=== PATIENT | female | born 1980 | race Caucasian/White ===

== ENCOUNTER 2020-06-20 22:11 | Inpatient (IN) ==
[2020-06-20] MEDS ORDERED: KETOROLAC TROMETHAMINE 15 MG/ML VIAL IV STA (22:22)
[2020-06-20] MEDS ORDERED: cefTRIAXone SODIUM 2,000 MG/70 ML BAG IV STA (22:23)
[2020-06-20] MEDS ORDERED: HYDROmorphone INJ 1 MG/ML SYRINGE IV STA (22:23)
[2020-06-20] MEDS ORDERED: ONDANSETRON INJ 2 MG/ML 2 ML VIAL IV STA (22:30)
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
[2020-06-20 22:51] LABS: Basophils # (auto) 0.03 K/uL (0-0.2); Basophils % (auto) 0.3 %; Eosinophils # (auto) 0.11 K/uL (0-0.5); Hematocrit (blood only) 46.3 % (37-47); Hemoglobin 15.7 g/dL (12.0-16.0); Immature Granulocytes # (auto) 0.01 K/uL (0.00-0.02); Immature Granulocytes % (auto) 0.1 %; Lymphocytes # (auto) 2.78 K/uL (1.2-3.4); Lymphocytes % (auto) 25.4 %; Mean Corpuscular Hemoglobin 29.6 pg (25-34); Mean Corpuscular Hgb Conc 33.9 g/dL (32-36); Mean Corpuscular Volume 87.4 fL (80-100); Mean Platelet Volume 10.1 fL (7.4-10.4); Monocytes # (auto) 0.66 K/uL (0.11-0.59); Neutrophils # (auto) 7.37 K/uL (1.4-6.5); Neutrophils % (auto) 67.2 %; Platelet Count 268 K/uL (130-400); RDW Coefficient of Variation 12.2 % (11.5-14.5); RDW Standard Deviation 38.6 fL (36.4-46.3); White Blood Count 10.96 K/uL (4.8-10.8)
[2020-06-20 22:55] LABS: Appearance Urine Cloudy (Clear); Bacteria Urine Automated Negative (Negative); Bilirubin Urine Negative (Negative); Blood Urine Trace (Negative); Color Urine Yellow; Epithelial Cell Urine Auto >30 /lpf (0-5); Glucose Urine UA Negative (Negative); Ketones Urine Negative (Negative); Leukocyte Esterase Urine 3+ (Negative); Nitrite Urine Negative (Negative); Protein Urine Negative (Negative); Specific Gravity Urine 1.013 (1.000-1.030); Urobilinogen Urine Negative (Negative); WBC Urine Automated >30 /hpf (0-5)
[2020-06-20 23:09] LABS: Albumin Level 3.4 gm/dl (3.4-5.0); BUN Creatinine Ratio 15.2 (10-20); Calcium 9.3 mg/dl (8.5-10.1); Creatinine Clr Calc Pharmacy 114.5 ml/min; Est GFR (Non-African American) 75.9; Potassium 3.9 mmol/L (3.5-5.1)
[2020-06-20 23:12] LABS: Albumin Globulin Ratio 0.9 (0.9-2); Bilirubin,Total 0.3 mg/dl (0.2-1); Globulin 3.9 gm/dl (2.5-4.0); Total Protein 7.3 gm/dl (6.4-8.2)
[2020-06-20] MEDS ORDERED: ACETAMINOPHEN 1,000 MG/100 ML VIAL IV STA (23:17)
[2020-06-21] MEDS ORDERED: ONDANSETRON INJ 2 MG/ML 2 ML VIAL IV PRN ×2 (01:36→13:31)
[2020-06-21] MEDS ORDERED: POLYETHYLENE (MIRALAX) 17 GM PACK PO PRN (01:36)
[2020-06-21] MEDS: SODIUM CHLORIDE 0.9% 1000ML 1,000 ML IV SCH ×3 (02:01→20:54)
--- NOTE | 2020-06-21 02:02 | History and Physical Report ---
DATE OF ADMISSION: 06/21/2020 CHIEF COMPLAINT: Renal colic. HISTORY OF PRESENT ILLNESS: This is a 39-year-old female with past medical history significant for bronchospasm exercise-induced; history of epilepsy, currently not on any medications, who presents with a right renal colic. The patient was in the ER yesterday morning with right renal colic and found to have 4 mm right UPJ stone and UTI. The patient was discharged on cefdinir and oxycodone. The patient's pain was not getting better, it got severe, right flank pain associated with some nausea. Denies any fevers, chills. No burning micturition, no hematuria. She has irritable bowel syndrome. She is chronically constipated. Denies any chest pain or shortness of breath. No cough, no headache, no blurred vision, no earache, no runny nose, no sore throat. Otherwise, she is doing okay. Currently seems somewhat in pain but hemodynamically stable. ALLERGIES: BEE VENOM, LATEX, SHELLFISH. PAST MEDICAL HISTORY: As mentioned above. PAST SURGICAL HISTORY: , tympanostomy with tubes, repair of a bladder defect, total hysterectomy. MEDICATIONS: Currently on Aleve as directed, Zofran 4 mg p.o. q. 6 hours p.r.n., oxycodone 5 mg p.o. q. 4 hours p.r.n., cefdinir 300 mg p.o. b.i.d. FAMILY HISTORY: Significant for father has hypertension. SOCIAL HISTORY: , smokes half pack a day for 20 years. No alcohol use, no drug use. REVIEW OF SYSTEMS: As per HPI. Rest of the review of systems negative. PHYSICAL EXAMINATION: GENERAL: The patient is obese, not in acute distress. VITAL SIGNS: Temperature 37, pulse when she came in was in 130s, respiratory rate currently in 20s, blood pressure 128/66, oxygen 95% on room air. HEENT: Pupils equal, round, and reactive to light. Oral mucosa moist. NECK: No neck masses seen, supple. CARDIOVASCULAR: S1, S2 heard. Regular rate and rhythm. No murmur, no gallop. RESPIRATORY SYSTEM: Normal AP diameter. No accessory muscle use. No wheezing, no crackles. ABDOMEN: Soft, bowel sounds present. Mild right flank tenderness and mild right CVA tenderness. No guarding, no rigidity, no distention. CENTRAL NERVOUS SYSTEM: Cranial nerves II-XII grossly intact. Nonfocal. EXTREMITIES: No edema, no erythema. LABORATORY DATA: WBC 10.9, hemoglobin 15.7, hematocrit 46.3, platelets 268. Sodium 143, potassium 3.9, chloride 108, bicarbonate 26, BUN 14, creatinine 0.9, serum glucose 128, calcium 9.3, total bilirubin 0.3, AST 11, ALT 24, alkaline phosphatase 114, lipase 273. Urinalysis, positive for leukocyte esterase. EKG: Normal sinus rhythm at a rate of 72, no significant change was found. IMAGING STUDIES: Done yesterday on the CAT scan showing 4 mm obstructing stone within the right ureteropelvic junction resulting in moderate right hydronephrosis. No change in 3.4 x 2 cm soft tissue abnormality in the gastrohepatic ligament. This could represent an enlarging lymph node or exophytic lesion such as GI stromal tumor. Nonemergent GI consultation recommended for further evaluation. ASSESSMENT AND PLAN: This is a 39-year-old female who presents with right renal colic. 1. Right renal colic and also urinary tract infection. A 4 mm right ureteropelvic junction stone with moderate hydronephrosis. No history of kidney stones in the past. We will keep her n.p.o., IV fluids, IV Dilaudid p.r.n., IV antiemetics, Flomax, and consult urology in the a.m. for further recommendation. 2. 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 This was there in 2018 too. The patient does not seem to be followed. We will consult GI while she is in the hospital. 3. Deep venous thrombosis prophylaxis, sequential compression devices. DISPOSITION: Monitor in the medical floor. Expect to discharge home and follow with family doctor. Level 1 full code. MTDD
[2020-06-21] MEDS: HYDROmorphone INJ 0.5 MG/0.5 ML SYR IV PRN ×6 (02:04→23:34)
[2020-06-21 07:09] LABS: Basophils # (auto) 0.01 K/uL (0-0.2); Basophils % (auto) 0.1 %; Eosinophils # (auto) 0.11 K/uL (0-0.5); Eosinophils % (auto) 1.2 %; Hematocrit (blood only) 41.9 % (37-47); Hemoglobin 14.2 g/dL (12.0-16.0); Immature Granulocytes # (auto) 0.01 K/uL (0.00-0.02); Immature Granulocytes % (auto) 0.1 %; Lymphocytes # (auto) 3.04 K/uL (1.2-3.4); Mean Corpuscular Hemoglobin 29.8 pg (25-34); Mean Corpuscular Hgb Conc 33.9 g/dL (32-36); Mean Corpuscular Volume 87.8 fL (80-100); Monocytes # (auto) 0.72 K/uL (0.11-0.59); Monocytes % (auto) 7.8 %; Neutrophils # (auto) 5.33 K/uL (1.4-6.5); Neutrophils % (auto) 57.8 %; Platelet Count 226 K/uL (130-400); RDW Coefficient of Variation 12.1 % (11.5-14.5); RDW Standard Deviation 38.8 fL (36.4-46.3); Red Blood Count 4.77 M/uL (4.2-5.4); White Blood Count 9.22 K/uL (4.8-10.8)
[2020-06-21 07:38] LABS: BUN Creatinine Ratio 20.2 (10-20); Calcium 9.1 mg/dl (8.5-10.1); Creatinine Clr Calc Pharmacy 134.2 ml/min; Est GFR (African American) 106.9; Est GFR (Non-African American) 92.2; Potassium 3.8 mmol/L (3.5-5.1)
[2020-06-21] MEDS: TAMSULOSIN HCL 0.4 MG CAP PO SCH (10:01)
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
--- NOTE | 2020-06-21 10:46 | Electrocardiogram Report ---
Test Reason : Blood Pressure : / mmHG Vent. Rate : 072 BPM Atrial Rate : 072 BPM P-R Int : 138 ms QRS Dur : 096 ms QT Int : 382 ms P-R-T Axes : 027 032 037 degrees QTc Int : 418 ms Normal sinus rhythm When compared with ECG of 09-JUL-2018 11:47, No significant change was found Confirmed by Guilherme Panchal ([id number]) on 06/21/2020 10:46:10 AM Referred By: REFERRED SELF Confirmed By:Charlie Panchal
--- NOTE | 2020-06-21 11:58 | Hospitalist Progress Note ---
Date of Service June 21, 2020 Assessment & Plan (1) Right kidney stone: Right renal colic CT A/P show 4mm right ureteropelvic jxn stone with moderate hydronephrosis Urology consult noted Planned for cystoscopy and possible stenting Continue to strain urine. Continue pain management Continue IVF UA showed +leuk est, WBC >30. Possible UTI. UCx from 06/19/20 showed 3 types of org, probably skin marlo Continue iv ceftriaxone for now and follow urine culture on admission Gastric mass noted on CT A/P - 3.4x2cm soft tissue abnormality at gastrohepatic ligament, no change. GI can follow up outpatient Admission and Anticipated Discharge Date Admission Date: June 21, 2020 Subjective Patient seen and examined Still reports intermittent right flank pain Denied any fevers, chills, nausea, vomiting Denied any diarrhea Denied any chest pain, SOB, HUERTA Physical Exam Constitutional: + well hydrated and + obese; no acute distress Eyes: PERRL, conjunctivae normal, anicteric sclerae ENMT: external ear and nose normal, oropharynx normal Respiratory: normal respiratory effort, lungs clear to auscultation Cardiovascular: RRR, no murmur, no edema Gastrointestinal (Abdomen): normal bowel sounds, soft, nontender, no hepatosplenomegaly Musculoskeletal: no cyanosis or clubbing, extremities motor strength 5/5 Neurologic: PERRL, EOMI, accommodation nl, no face palsy, no dysarthria Psychiatric: A+Ox3, euthymic affect Genitourinary: + CVA tenderness (Right) Results & Data Results & Data ([facility]) Vital Signs (Past 12 Hours) Vital Signs Temp Pulse Resp BP Pulse Ox 06/21/20 06:56 36.7 C 60 20 118/78 95 06/21/20 01:37 36.5 C 75 18 157/82 H 97 06/21/20 01:07 88 14 110/64 95 Laboratory Results Laboratory Results - last 24 hr 06/20/20 06/20/20 06/20/20 22:41 22:41 22:41 WBC 10.96 H RBC 5.30 Hgb 15.7 Hct 46.3 MCV 87.4 MCH 29.6 MCHC 33.9 RDW Std Deviation 38.6 RDW Coeff of Raul 12.2 Plt Count 268 MPV 10.1 Immature Gran % (Auto) 0.1 Neut % (Auto) 67.2 Lymph % (Auto) 25.4 [place] % (Auto) 6.0 Eos % (Auto) 1.0 Baso % (Auto) 0.3 Neut # (Auto) 7.37 H Lymph # (Auto) 2.78 [place] # (Auto) 0.66 H Eos # (Auto) 0.11 Baso # (Auto) 0.03 Immature Gran # (Auto) 0.01 Sodium 143 Potassium 3.9 Chloride 108 H Carbon Dioxide 26 Anion Gap 9.0 BUN 14 Creatinine 0.94 Est Cr Clr Drug Dosing 114.5 Est GFR ( Amer) 88.0 Est GFR (Non-Af Amer) 75.9 BUN/Creatinine Ratio 15.2 Glucose 129 H Calcium 9.3 Magnesium Total Bilirubin 0.3 AST 11 L ALT 24 Alkaline Phosphatase 114 Total Protein 7.3 Albumin 3.4 Globulin 3.9 Albumin/Globulin Ratio 0.9 Lipase 273 Urine Color Yellow Urine Appearance Cloudy A Urine pH 7.0 Ur Specific [place] 1.013 Urine Protein Negative Urine Glucose (UA) Negative Urine Ketones Negative Urine Blood Trace H Urine Nitrite Negative Urine Bilirubin Negative Urine Urobilinogen Negative Ur Leukocyte Esterase 3+ H Urine WBC (Auto) >30 H Urine RBC (Auto) 5-10 H U Hyaline Cast (Auto) 1-5 U Epithel Cells (Auto) >30 H Urine Bacteria (Auto) Negative POC Ur Test COVID-19 Eval Order SARS-CoV-2, RNA, NAAT 06/20/20 06/21/20 06/21/20 22:41 06:58 06:58 WBC 9.22 RBC 4.77 Hgb 14.2 Hct 41.9 MCV 87.8 MCH 29.8 MCHC 33.9 RDW Std Deviation 38.8 RDW Coeff of Raul 12.1 Plt Count 226 MPV 10.0 Immature Gran % (Auto) 0.1 Neut % (Auto) 57.8 Lymph % (Auto) 33.0 [place] % (Auto) 7.8 Eos % (Auto) 1.2 Baso % (Auto) 0.1 Neut # (Auto) 5.33 Lymph # (Auto) 3.04 [place] # (Auto) 0.72 H Eos # (Auto) 0.11 Baso # (Auto) 0.01 Immature Gran # (Auto) 0.01 Sodium 141 Potassium 3.8 Chloride 111 H Carbon Dioxide 23 Anion Gap 7.0 BUN 16 Creatinine 0.80 Est Cr Clr Drug Dosing 134.2 Est GFR ( Amer) 106.9 Est GFR (Non-Af Amer) 92.2 BUN/Creatinine Ratio 20.2 H Glucose 101 H Calcium 9.1 Magnesium 2.0 Total Bilirubin AST ALT Alkaline Phosphatase Total Protein Albumin Globulin Albumin/Globulin Ratio Lipase Urine Color Urine Appearance Urine pH Ur Specific [place] Urine Protein Urine Glucose (UA) Urine Ketones Urine Blood Urine Nitrite Urine Bilirubin Urine Urobilinogen Ur Leukocyte Esterase Urine WBC (Auto) Urine RBC (Auto) U Hyaline Cast (Auto) U Epithel Cells (Auto) Urine Bacteria (Auto) POC Ur Test NEG COVID-19 Eval Order SARS-CoV-2, RNA, NAAT 06/21/20 06/21/20 Unknown Unknown WBC RBC Hgb Hct MCV MCH MCHC RDW Std Deviation RDW Coeff of Raul Plt Count MPV Immature Gran % (Auto) Neut % (Auto) Lymph % (Auto) [place] % (Auto) Eos % (Auto) Baso % (Auto) Neut # (Auto) Lymph # (Auto) [place] # (Auto) Eos # (Auto) Baso # (Auto) Immature Gran # (Auto) Sodium Potassium Chloride Carbon Dioxide Anion Gap BUN Creatinine Est Cr Clr Drug Dosing Est GFR ( Amer) Est GFR (Non-Af Amer) BUN/Creatinine Ratio Glucose Calcium Magnesium Total Bilirubin AST ALT Alkaline Phosphatase Total Protein Albumin Globulin Albumin/Globulin Ratio Lipase Urine Color Urine Appearance Urine pH Ur Specific [place] Urine Protein Urine Glucose (UA) Urine Ketones Urine Blood Urine Nitrite Urine Bilirubin Urine Urobilinogen Ur Leukocyte Esterase Urine WBC (Auto) Urine RBC (Auto) U Hyaline Cast (Auto) U Epithel Cells (Auto) Urine Bacteria (Auto) POC Ur Test COVID-19 Eval [facility] SARS-CoV-2, RNA, NAAT NEGATIVE
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
[2020-06-21] MEDS ORDERED: fentaNYL citrate 100 MCG/2 ML VIAL IV PRN (13:31)
[2020-06-21] MEDS ORDERED: ATROPINE SULFATE 0.1 MG/ML 10ML SYR IV PRN (13:31)
[2020-06-21] MEDS ORDERED: MIDAZOLAM HCL 1 MG/ML 2ML VIAL ONE ×2 (13:52→14:08)
[2020-06-21] MEDS ORDERED: ONDANSETRON INJ 2 MG/ML 2 ML VIAL ONE (13:52)
[2020-06-21] MEDS ORDERED: LIDOCAINE HCL 2% 2 ML VIAL/AMP(20MG/ML) INFIL ONE (13:52)
[2020-06-21] MEDS ORDERED: PROPOFOL IV EMULSION 10 MG/ML 20 ML VIAL IV ONE (13:52)
[2020-06-21] MEDS ORDERED: fentaNYL citrate 100 MCG/2 ML VIAL ONE (13:52)
--- NOTE | 2020-06-21 14:25 | Operative Report ---
PG Post Operative Report Pre & Post Diagnosis Operation Date: 06/21/20 13:30 Pre-Op Diagnosis: Renal Colic Post-Op Diagnosis: Renal Colic I identified the patient and participated in the time-out.: Yes Procedure Operation Date: 06/21/20 13:30 Actual Procedures p Right Ureteral Stent Insertion(Right) - Pierre Esteves MD Surgeon Guilherme Esteves MD [place] none Estimated Blood Loss 0 Findings Consistent with Post-Op Diagnosis Specimens none Description of Procedure The patient was identified in the preoperative holding area, appropriate informed consents were reviewed and completed and the patient was transferred to the operative suite. Upon arrival, appropriate antibiotics and anesthesia were administered and the patient was placed in dorsal lithotomy position and prepped and draped in sterile fashion. To begin the case to pass a 22 Jama[place] cystoscope with 30 degree lens. Inspection revealed a healthy-appearing bladder and ureteral orifices in orthotopic position. Return my attention of the right ureteral orifice and cannulated with a sensor wire and a 5 Jamaican open-ended catheter. The wire advanced to the kidney without difficulty. I then placed a 6 Jamaican by 26 cm double-J ureteral stent seeing a good curl in the kidney as well as the bladder. The case was subsequently concluded and the bladder decompressed. She was returned to the PACU in stable condition and there were no complications. I attest to the content of the Intraoperative Record and any orders documented therein. Any exceptions are noted below.
--- NOTE | 2020-06-21 14:31 | Fluoroscopy Report ---
FL KUB CLINICAL HISTORY: RT STENT PLACEMENT COMPARISON STUDY: None. FLUOROSCOPY TIME: 4 seconds. FINDINGS: Single fluoroscopic spot image of the right abdomen demonstrates a right ureteral stent. On ly proximal portion of the stent is identified and appears in good position. IMPRESSION: Fluoroscopy provided for right ureteral stent placement. ACT 112: Negative or not required by law. Electronically signed by: Jak Reeves M.D. 06/21/2020 2:29 PM
--- NOTE | 2020-06-21 15:07 | Anesthesiology Progress Note ---
Date of Service June 21, 2020 Anesthesia Post Procedure Vital Signs Vital Signs: Temp Pulse Pulse Pulse Resp BP BP 06/21/20 15:00 63 17 104/72 06/21/20 14:50 67 14 104/72 06/21/20 14:40 36.5 C 76 12 115/72 06/21/20 14:30 63 17 124/67 06/21/20 14:23 36.5 C 68 16 114/57 L 06/21/20 06:56 36.7 C 60 20 118/78 06/21/20 01:37 36.5 C 75 18 157/82 H 06/21/20 01:07 88 14 110/64 06/20/20 23:09 06/20/20 22:14 37.0 C 133 H 35 H 128/66 Pulse Ox 06/21/20 15:00 94 06/21/20 14:50 96 06/21/20 14:40 93 06/21/20 14:30 94 06/21/20 14:23 100 06/21/20 06:56 95 06/21/20 01:37 97 06/21/20 01:07 95 06/20/20 23:09 95 06/20/20 22:14 98 Pain Intensity Right Flank: Pain Intensity: 3 Transfer of Care Handoff Completed per policy Notes Mental Status: alert / awake / arousable Patient Amnestic to Procedure: Yes Nausea / Vomiting: adequately controlled Pain: adequately controlled Airway Patency, RR, SpO2: stable & adequate BP & HR: stable & adequate Hydration State: stable & adequate Anesthetic Complications: no major complications apparent
[2020-06-21] MEDS ORDERED: NAPROXEN 250 MG TAB PO PRN (15:21)
[2020-06-21] MEDS ORDERED: ONDANSETRON 4 MG OD TAB PO PRN (15:22)
[2020-06-21] MEDS: ACETAMINOPHEN 325 MG TAB PO PRN ×2 (16:37→21:00)
[2020-06-21] MEDS: OXYCODONE HCL IR 5 MG TAB (IMMEDIATE RELEASE) PO PRN (16:37)
--- NOTE | 2020-06-21 20:24 | Consultation Report ---
DATE OF CONSULTATION: 06/21/2020 GASTROENTEROLOGY CONSULT NOTE I was asked by Dr. Simmons to consult on this woman for evaluation of abnormal imaging. The patient is a 39-year-old who was admitted because of renal colic and is being managed for a kidney stone. However, imaging of her abdomen revealed an incidental 3 x 2 cm soft tissue abnormality at the gastrohepatic ligament previously seen several years ago. She has not had a workup of this. We discussed this briefly and I recommended an outpatient upper endoscopy with endoscopic ultrasound. This can be done electively as an outpatient. This lesion seems stable in size since previous imaging. The patient is agreeable with outpatient workup.
[2020-06-21] MEDS: cefTRIAXone SODIUM 2,000 MG in DEXTROSE 5% 50 ML IV SCH (21:02)
[2020-06-22] MEDS: PHENAZOPYRIDINE HCL 100 MG TAB PO PRN ×2 (02:20→20:37)
[2020-06-22] MEDS: HYDROmorphone INJ 0.5 MG/0.5 ML SYR IV PRN ×3 (05:00→20:29)
[2020-06-22] MEDS: SODIUM CHLORIDE 0.9% 1000ML 1,000 ML IV SCH ×4 (05:04→21:34)
[2020-06-22 06:26] LABS: Hematocrit (blood only) 39.3 % (37-47); Hemoglobin 13.4 g/dL (12.0-16.0); Mean Corpuscular Hemoglobin 30.1 pg (25-34); Mean Corpuscular Hgb Conc 34.1 g/dL (32-36); Mean Corpuscular Volume 88.3 fL (80-100); Mean Platelet Volume 10.5 fL (7.4-10.4); Platelet Count 207 K/uL (130-400); RDW Coefficient of Variation 12.1 % (11.5-14.5); RDW Standard Deviation 38.8 fL (36.4-46.3); Red Blood Count 4.45 M/uL (4.2-5.4); White Blood Count 8.98 K/uL (4.8-10.8)
[2020-06-22 07:18] LABS: BUN Creatinine Ratio 10.7 (10-20); Calcium 8.4 mg/dl (8.5-10.1); Creatinine Clr Calc Pharmacy 147.1 ml/min; Est GFR (African American) 119.4; Potassium 3.4 mmol/L (3.5-5.1)
[2020-06-22] MEDS: TAMSULOSIN HCL 0.4 MG CAP PO SCH (09:40)
[2020-06-22] MEDS: OXYCODONE HCL IR 5 MG TAB (IMMEDIATE RELEASE) PO PRN ×3 (09:41→22:23)
--- NOTE | 2020-06-22 10:05 | Urology Progress Note ---
Date of Service June 22, 2020 Assessment & Plan (1) Right kidney stone: s/p right ureteral stent yesterday stone pain improved, but stent discomfort is significant and she is not handling this well toradol now if pain can be reasonably controlled, dc home for outpt treatment if pain cannot be controlled, we will have to figure out if we can find a time to treat her stone this week Admission and Anticipated Discharge Date Admission Date: June 21, 2020 Subjective urgent stent placement yesterday somewhat improved today stent related discomfort has been relatively significant - voiding very frequently vitals stable Physical Exam Constitutional: well developed and well nourished Respiratory: no respiratory distress Cardiovascular: Extremities: no pedal edema Gastrointestinal (Abdomen): Inspection/Auscultation: abdomen normal to inspection Results & Data ([facility]) Vital Signs (Past 12 Hours) Vital Signs Temp Pulse Resp BP BP Pulse Ox 06/22/20 06:57 36.6 C 61 18 117/70 95 06/22/20 04:14 36.9 C 68 20 120/74 99 06/21/20 23:57 36.7 C 67 20 137/90 99 PG Care Time/CCT Total # of Minutes Spent Total Time Spent with Patient: Total time spent is greater than 50% in coordination of care (as documented) at patient's floor/unit and/or counseling patient: Coding Level of Care Code 11363 Subseq Hosp Care Lvl 3 Diagnoses Right kidney stone N20.0
--- NOTE | 2020-06-22 10:19 | Hospitalist Progress Note ---
Date of Service June 22, 2020 Assessment & Plan (1) Right kidney stone: Right renal colic CT A/P show 4mm right ureteropelvic jxn stone with moderate hydronephrosis S/P Right ureteral stent placement yesterday Continue to strain urine. Continue pain management Continue IVF UA showed +leuk est, WBC >30. Possible UTI. UCx from 06/19/20 showed 3 types of org, probably skin marlo Urine culture from admission still pending Continue iv ceftriaxone for now and follow urine culture on admission Gastric mass noted on CT A/P - 3.4x2cm soft tissue abnormality at gastrohepatic ligament, no change. Will follow up with GI outpatient for evaluation with endoscopy Admission and Anticipated Discharge Date Admission Date: June 21, 2020 Subjective Patient seen and examined Still reports significant right flank pain. Denied any fevers, chills, nausea Denied any diarrhea Physical Exam Constitutional: + well hydrated and + obese; no acute distress Eyes: PERRL, conjunctivae normal, anicteric sclerae ENMT: external ear and nose normal, oropharynx normal Respiratory: normal respiratory effort, lungs clear to auscultation Cardiovascular: RRR, no murmur, no edema Gastrointestinal (Abdomen): normal bowel sounds, soft, nontender, no hepatosplenomegaly Musculoskeletal: no cyanosis or clubbing, extremities motor strength 5/5 Neurologic: PERRL, EOMI, accommodation nl, no face palsy, no dysarthria Psychiatric: A+Ox3, euthymic affect Genitourinary: + CVA tenderness (Right) Results & Data Results & Data ([facility]) Vital Signs (Past 12 Hours) Vital Signs Temp Pulse Resp BP BP Pulse Ox 06/22/20 06:57 36.6 C 61 18 117/70 95 06/22/20 04:14 36.9 C 68 20 120/74 99 06/21/20 23:57 36.7 C 67 20 137/90 99 Laboratory Results Laboratory Results - last 24 hr 06/22/20 06/22/20 05:31 05:31 WBC 8.98 RBC 4.45 Hgb 13.4 Hct 39.3 MCV 88.3 MCH 30.1 MCHC 34.1 RDW Std Deviation 38.8 RDW Coeff of Raul 12.1 Plt Count 207 MPV 10.5 H Sodium 140 Potassium 3.4 L Chloride 111 H Carbon Dioxide 23 Anion Gap 6.0 BUN 8 D Creatinine 0.73 Est Cr Clr Drug Dosing 147.1 Est GFR ( Amer) 119.4 Est GFR (Non-Af Amer) 103.0 BUN/Creatinine Ratio 10.7 Glucose 110 H Calcium 8.4 L
[2020-06-22] MEDS ORDERED: KETOROLAC 30 MG/ML VIAL IV ONE (10:50)
[2020-06-22] MEDS ORDERED: POTASSIUM CHLORIDE PWD 20 MEQ PACK PO ONE (12:57)
[2020-06-22] MEDS: cefTRIAXone SODIUM 2,000 MG in DEXTROSE 5% 50 ML IV SCH (21:33)
[2020-06-22] MEDS: ACETAMINOPHEN 325 MG TAB PO PRN (22:22)
[2020-06-23] MEDS: HYDROmorphone INJ 0.5 MG/0.5 ML SYR IV PRN ×3 (02:32→10:50)
[2020-06-23 06:04] LABS: Hemoglobin 13.4 g/dL (12.0-16.0); Mean Corpuscular Hemoglobin 29.2 pg (25-34); Mean Corpuscular Hgb Conc 32.7 g/dL (32-36); Mean Corpuscular Volume 89.3 fL (80-100); Mean Platelet Volume 10.2 fL (7.4-10.4); Platelet Count 214 K/uL (130-400); RDW Coefficient of Variation 12.1 % (11.5-14.5); RDW Standard Deviation 39.4 fL (36.4-46.3); Red Blood Count 4.59 M/uL (4.2-5.4); White Blood Count 6.81 K/uL (4.8-10.8)
[2020-06-23 06:32] LABS: BUN Creatinine Ratio 16.4 (10-20); Calcium 9.1 mg/dl (8.5-10.1); Creatinine Clr Calc Pharmacy 130.9 ml/min; Est GFR (African American) 103.7; Est GFR (Non-African American) 89.5
[2020-06-23] MEDS: SODIUM CHLORIDE 0.9% 1000ML 1,000 ML IV SCH ×3 (06:37→14:33)
[2020-06-23] MEDS: TAMSULOSIN HCL 0.4 MG CAP PO SCH (09:38)
[2020-06-23] MEDS: OXYCODONE HCL IR 5 MG TAB (IMMEDIATE RELEASE) PO PRN ×3 (09:41→21:40)
--- NOTE | 2020-06-23 12:52 | Hospitalist Progress Note ---
Date of Service June 23, 2020 Assessment & Plan (1) Right kidney stone: Right renal colic CT A/P show 4mm right ureteropelvic jxn stone with moderate hydronephrosis S/P Right ureteral stent placement yesterday Continue to strain urine. Discontinue dilaudid. Give ketorolac. continue oxycodone prn for severe pain Continue IVF at 100cc/h Advised patient to ambulate Discussed with Dr Kraft (urologist). Patient will follow up with them outpatient for continued management UTI UA showed +leuk est, WBC >30. UCx from 06/19/20 showed 3 types of org, probably skin marlo Urine culture from admission - negative. Patient had been on antibiotics from ER visit prior Continue iv ceftriaxone for now and plan to change to po to complete 7-10 day therapy Gastric mass noted on CT A/P - 3.4x2cm soft tissue abnormality at gastrohepatic ligament, no change. Will follow up with GI outpatient for evaluation with endoscopy Dispo- possible discharge within 24-48h Admission and Anticipated Discharge Date Admission Date: June 22, 2020 Subjective Patient seen and examined Still reports severe right sided abd pain with intermittent relief with dilaudid and oxycodone Denied any dysuria, freq, urgency, hematuria at this time Denied abd pain, nausea, vomiting, diarrhea Denied any cough, chest pain, SOB, HUERTA Physical Exam Constitutional: + well hydrated and + obese; no acute distress Eyes: PERRL, conjunctivae normal, anicteric sclerae ENMT: external ear and nose normal, oropharynx normal Respiratory: normal respiratory effort, lungs clear to auscultation Cardiovascular: RRR, no murmur, no edema Gastrointestinal (Abdomen): normal bowel sounds, soft, nontender, no hepatosplenomegaly Musculoskeletal: no cyanosis or clubbing, extremities motor strength 5/5 Neurologic: PERRL, EOMI, accommodation nl, no face palsy, no dysarthria Psychiatric: A+Ox3, euthymic affect Genitourinary: + CVA tenderness (Right) Results & Data Results & Data ([facility]) Vital Signs (Past 12 Hours) Vital Signs Temp Pulse Resp BP Pulse Ox 06/23/20 07:16 36.8 C 75 18 112/72 94 Laboratory Results Laboratory Results - last 24 hr 06/23/20 06/23/20 05:28 05:28 WBC 6.81 RBC 4.59 Hgb 13.4 Hct 41.0 MCV 89.3 MCH 29.2 MCHC 32.7 RDW Std Deviation 39.4 RDW Coeff of Raul 12.1 Plt Count 214 MPV 10.2 Sodium 140 Potassium 4.0 D Chloride 112 H Carbon Dioxide 25 Anion Gap 3.0 BUN 13 D Creatinine 0.82 Est Cr Clr Drug Dosing 130.9 Est GFR ( Amer) 103.7 Est GFR (Non-Af Amer) 89.5 BUN/Creatinine Ratio 16.4 Glucose 100 H Calcium 9.1
--- NOTE | 2020-06-23 12:59 | Urology Progress Note ---
Date of Service June 23, 2020 Assessment & Plan (1) Right kidney stone: POD2 s/p right ureteral stent Patient continues to have discomfort. Discussed options to consider all concerns and other issues. Continues to have urgency and urgency. Mild nausea. Has been slowly improving. Patient is trying to keep up with hydration. Plans to follow. Will likely need 1 to 2 weeks of treatments. We will plan to follow-up in between now and then to set up for procedure. Otherwise continue with symptom control. Home likely today or the next day. Admission and Anticipated Discharge Date Admission Date: June 22, 2020 Subjective Postop from stent placement for obstruction issues. Patient has been tolerating well. Has noticed some frequency and urgency. Has not had severe pain in the back and flank. Does have occasional burning and irritation. No severe episodes or major changes. No new nausea or vomiting. Had tolerated anesthesia without major problems Review of Systems Review of Systems: All systems reviewed & are unremarkable except as noted in HPI & below Physical Exam Physical Exam: General: Alert in no acute distress. HEENT: Normocephalic Atraumatic. Inspection normal. Cranial Nerves 2-12 Grossly intact. Normal inspection of face. Normal inspection of neck. Psychologic: Normal affect. Respiratory: Nonlabored. No use of accessory muscles. No tachypnea or dyspnea. Cardiovascular: No tachycardia Skin: [place] and Dry. No rashes or visible lesions. Extremities/Lymphatics: No edema Abdomen: Soft Non-distended. No rebound or guarding. Obese Results & Data ([facility]) Vital Signs (Past 12 Hours) Vital Signs Temp Pulse Resp BP Pulse Ox 06/23/20 07:16 36.8 C 75 18 112/72 94 PG Care Time/CCT Total # of Minutes Spent Total Time Spent with Patient: Total time spent is greater than 50% in coordination of care (as documented) at patient's floor/unit and/or counseling patient: Coding Level of Care Code 97971 Subseq Hosp Care Lvl 3 Diagnoses Right kidney stone N20.0
[2020-06-23] MEDS ORDERED: KETOROLAC TROMETHAMINE 15 MG/ML VIAL IV ONE (13:00)
[2020-06-23] MEDS: KETOROLAC TROMETHAMINE 10 MG TABLET PO SCH (16:06)
[2020-06-23] MEDS: cefTRIAXone SODIUM 2,000 MG in DEXTROSE 5% 50 ML IV SCH (21:40)
[2020-06-23] MEDS: PHENAZOPYRIDINE HCL 100 MG TAB PO PRN (22:57)
[2020-06-24] MEDS: SODIUM CHLORIDE 0.9% 1000ML 1,000 ML IV SCH (01:53)
[2020-06-24 06:22] LABS: BUN Creatinine Ratio 15.7 (10-20); Calcium 8.5 mg/dl (8.5-10.1); Creatinine Clr Calc Pharmacy 137.6 ml/min; Est GFR (African American) 110.2; Est GFR (Non-African American) 95.1
[2020-06-24] MEDS: PHENAZOPYRIDINE HCL 100 MG TAB PO PRN (08:40)
[2020-06-24] MEDS: TAMSULOSIN HCL 0.4 MG CAP PO SCH (08:40)
[2020-06-24] MEDS: KETOROLAC TROMETHAMINE 10 MG TABLET PO SCH ×2 (08:40→12:42)
[2020-06-24] MEDS ORDERED: MIRABEGRON ER 25 MG TAB PO ONE (10:00)
--- NOTE | 2020-06-24 10:16 | XRay Report ---
XR KUB/Abdomen 1 view CLINICAL HISTORY: right ureteral stone COMPARISON STUDY: CT scan dated 06/19/2020 FINDINGS: There is a double pigtail right-sided nephroureteral stent. There is a 4 mm lower pole righ t renal calculus. There is an additional punctate upper pole right renal calculus versus overlying en teric contents. There is no pathologic bowel dilatation. IMPRESSION: 1. 4 mm lower pole right renal calculus 2. Right-sided nephroureteral stent ACT 112: Negative or not required by law. Electronically signed by: Wai Guadarrama M.D. 06/24/2020 10:15 AM
--- NOTE | 2020-06-24 10:51 | Urology Progress Note ---
Date of Service June 24, 2020 Assessment & Plan (1) Right kidney stone: 39yo F who is POD#3 s/p right ureteral stent placement -Reviewed plan of care with Dr. Singleton -Remains afebrile -Labs reviewed, WBC and Creatinine are stable -Urine culture was negative for infection -4mm right renal stone visualized on KUB today -Myrbetriq ordered per Dr. Singleton -Will tentatively plan for outpatient ESWL on Tuesday if able -Recommend pain control, Flomax, and Pyridium on discharge -Patient is stable for discharge from a perspective. Will plan to follow-up in our office tomorrow at 2pm to discuss definitive stone treatment -Patient is agreeable to above plan. All questions were answered. Admission and Anticipated Discharge Date Admission Date: June 22, 2020 Subjective 39yo F who is POD#3 s/p right ureteral stent Patient examined at bedside today Awake, resting in bed on arrival Continues to have some right flank/abdominal pain tolerable with PO Toradol and Pyridium Denies fevers or chills Tolerating PO diet without nausea or vomiting Denies gross hematuria Some pressure with voiding Ambulating independently Chart review: Afebrile WBC (06/23) 6.81 Cr (06/24) 0.78 Urine culture (06/20)- negative KUB (06/24)- 4 mm lower pole right renal calculus and a Right-sided nephroureteral stent Review of Systems Constitutional: as per Subjective / HPI Gastrointestinal: as per Subjective / HPI Genitourinary: as per Subjective / HPI Physical Exam Constitutional: well developed and well nourished; no acute distress Respiratory: normal respiratory effort and able to speak in complete sentences Gastrointestinal (Abdomen): Inspection/Auscultation: abdomen normal to inspection; abdomen not distended Musculoskeletal: Head/Neck/Chest: normocephalic Skin: no rashes, warm and dry Neurologic: moves all extremities and awake; not confused Psychiatric: Orientation: alert, oriented x 3 and cooperative Results & Data ([facility]) Vital Signs (Past 12 Hours) Vital Signs Temp Pulse Resp BP Pulse Ox 06/24/20 07:00 36.7 C 61 20 127/79 98 06/23/20 23:49 36.9 C 69 18 119/73 95 PG Care Time/CCT Total # of Minutes Spent Total Time Spent with Patient: Total time spent is greater than 50% in coordination of care (as documented) at patient's floor/unit and/or counseling patient: Coding Level of Care Code 66965 Subseq Hosp Care Lvl 2 Diagnoses Right kidney stone N20.0
--- NOTE | 2020-06-24 12:44 | Discharge Summary ---
Date of Service June 24, 2020 Admission HPI Per Admitting Provider 39-year-old female with past medical history significant for bronchospasm exercise-induced; history of epilepsy, currently not on any medications, who presents with a right renal colic. The patient was in the ER yesterday morning with right renal colic and found to have 4 mm right UPJ stone and UTI. The patient was discharged on cefdinir and oxycodone. The patient's pain was not getting better, it got severe, right flank pain associated with some nausea. Denies any fevers, chills. No burning micturition, no hematuria. She has irritable bowel syndrome. She is chronically constipated. Denies any chest pain or shortness of breath. No cough, no headache, no blurred vision, no earache, no runny nose, no sore throat. Otherwise, she is doing okay. Currently seems somewhat in pain but hemodynamically stable Admission Exam Per Admitting Provider GENERAL: The patient is obese, not in acute distress. VITAL SIGNS: Temperature 37, pulse when she came in was in 130s, respiratory rate currently in 20s, blood pressure 128/66, oxygen 95% on room air. HEENT: Pupils equal, round, and reactive to light. Oral mucosa moist. NECK: No neck masses seen, supple. CARDIOVASCULAR: S1, S2 heard. Regular rate and rhythm. No murmur, no gallop. RESPIRATORY SYSTEM: Normal AP diameter. No accessory muscle use. No wheezing, no crackles. ABDOMEN: Soft, bowel sounds present. Mild right flank tenderness and mild right CVA tenderness. No guarding, no rigidity, no distention. CENTRAL NERVOUS SYSTEM: Cranial nerves II-XII grossly intact. Nonfocal. EXTREMITIES: No edema, no erythema. Principal Diagnosis Nephrolithiasis S/p stent placement Urinary tract infection Gastric mass Discharge Exam Constitutional + well hydrated and + obese; no acute distress Eyes PERRL, conjunctivae normal, anicteric sclerae ENMT external ear and nose normal, oropharynx normal Respiratory normal respiratory effort, lungs clear to auscultation Cardiovascular RRR, no murmur, no edema Gastrointestinal (Abdomen) normal bowel sounds, soft, nontender, no hepatosplenomegaly Musculoskeletal no cyanosis or clubbing, extremities motor strength 5/5 Neurologic PERRL, EOMI, accommodation nl, no face palsy, no dysarthria Psychiatric A+Ox3, euthymic affect Genitourinary no CVA tenderness Discharge Data Allergies Allergy/AdvReac Type Severity Reaction Status Date / Time shellfish derived Allergy Severe THROAT Verified 06/20/20 23:26 SWELLING WITH SEAFOOD ciprofloxacin [From Cipro] Allergy Mild CAUSES Unverified 06/20/20 23:26 YEAST INFECTION bee venom protein (honey bee) Allergy Unknown HIVES Verified 06/20/20 23:26 latex Allergy Unknown RASH/HIVES Verified 06/20/20 23:26 Consultations 06/20/20 23:18 ED Decision to Admit Stat 06/21/20 01:36 Consult Case Management - Discharge Planning Routine 06/21/20 08:00 Consult Gastroenterology Routine Consult Urology Routine Procedures Performed Operation Date: 06/21/20 13:30 Actual Procedures p Right Ureteral Stent Insertion(Right) - Pierre Esteves MD Ordered Studies 06/21/20 [place] KUB Routine Hospital Course (1) Right kidney stone: Right renal colic CT A/P show 4mm right ureteropelvic jxn stone with moderate hydronephrosis S/P Right ureteral stent placement on 06/21/20 Discharged on ketorolac prn moderate to severe pain, tylenol prn mild pain Discharged on flomax and pyridium per Urologist recommendations To follow up with Urology for definitive stone therapy UTI UA showed +leuk est, WBC >30. UCx from 06/19/20 showed 3 types of org, probably skin marlo Urine culture from admission - negative. Patient had been on antibiotics from ER visit prior Continue cefdinir (patient still has supply from ER prescription) for 1 week to complete therapy Gastric mass noted on CT A/P - 3.4x2cm soft tissue abnormality at gastrohepatic ligament, no change. Evaluated by Gastroenterology Will follow up with GI outpatient for evaluation with endoscopy Total Time Total Time Spent Total Time Spent (In Minutes): 40 Total Time Includes: Examination of the Patient, Discharge Planning and Medication Reconciliation Discharge Plan Discharge Items Patient Disposition: Home - Self-Care Reason For Visit: RENAL COLIC Discharge Diagnosis: Right nephrolithiasis (kidney stone) S/P stent placement Urinary Tract infection Activity: Resume your previous activity Non-emergency contact: Primary Care Provider and Urologist Call non-emergency contact if: you have any medication questions Follow-up/Referrals: Karyn Knutson, DO [Primary Care Provider] - 10/12/20 11:20 am (Date & Time 06/30/2020 11:20 AM Provider Karyn Knutson DO Department Family [facility] ) Diet: Heart Healthy Addtl Attending Provider Instructions: Ms Morgan You came to the hospital complaining of right sided abdominal pain. You were evaluated and treated for obstructing kidney stone and urinary tract infection. You got stent placed by Urologist. You were also treated with antibiotics. Please continue antibiotics (cefdinir) for the next 1 week to complete treatment Please follow up with Urology as scheduled for further kidney stone treatment. Please follow up with your Primary Doctor Stop taking the aleve. Use tylenol prn for mild pain and ketorolac prn for moderate/severe pain. Please do not take NSAIDS (ketorolac, alleve, motrin) for prolonged periods of time due to side effects as we discussed It was a pleasure taking care of you. Pending Studies at Discharge: No Stand-Alone Forms: My [facility], Opioid Pain Management, Smoking Cessation Medications and DC Order Prescriptions: New acetaminophen 325 mg Tablet 650 mg PO Q4H PRN (Reason: pain, mild) Qty: 50 RF: 0 tamsulosin 0.4 mg Capsule 0.4 mg PO QAM Qty: 30 RF: 0 phenazopyridine [Pyridium] 100 mg Tablet 100 mg PO TID PRN (Reason: Urinary pain/spasms) Qty: 30 RF: 0 ketorolac 10 mg tablet 10 mg PO Q8H PRN (Reason: moderate pain (scale score 5-6)) 3 Days Qty: 10 RF: 0 Continued ondansetron 4 mg tablet,disintegrating 4 mg PO Q6H PRN (Reason: nausea and vomiting) Qty: 15 RF: 0 cefdinir 300 mg capsule 300 mg PO BID 10 Days Qty: 20 RF: 0 oxycodone 5 mg tablet 5 mg PO Q4H PRN (Reason: pain) Qty: 18 RF: 0 Discontinued Aleve Back And Body 1 dose PO DIRECTED PRN (Reason: Back/Body Pain) RF: 0 Discharge Orders: Discharge Order (Routine); Ordered 06/24/20 Ordered By: Carolina Franco/Other Patient Handouts: Having a Ureteral Stent Admission Data Admit Date/Time: 06/22/20 12:53 Attending Provider: Carolina Hall I. Admit Provider: Adama Simmons Primary Care Provider: Karyn Knutsno Other Providers: Adama Simmons ; Tj Goode ; Joseph Singleton ; Dickson Jimenez ; Evans Saucedo I. ; Pierre Esteves ; Meenakshi Bailey ; Tran Moreno ; Wan Kraft ; Isabel Pompa ; Rachel Soto ; Shadi Alicea ; Millicent Pizano ; Karlee Steele Other Interventions: Discharge Summary Assessment (RN) Last Done: 06/24/20 12:18
[2020-06-25] MEDS ORDERED: MIRABEGRON ER 25 MG TAB PO SCH (09:00)
== END 2020-06-24 13:31 | disposition home or self-care (01) | DRG 661 ==
LOC: ED 22:11 → 3N 22:11